=== PATIENT | female | born 1965 | race Caucasian/White ===

== ENCOUNTER 2017-09-21 09:13 | Emergency (ER) | payer BC ==
[2017-09-21 09:46] VITALS: O2SAT 99
[2017-09-21] MEDS ORDERED: TORAdol 30 mg Injection IM ONE (09:55)
[2017-09-21] MEDS ORDERED: Phenergan 25 MG INJ IM ONE (09:55)
--- NOTE | 2017-09-21 09:55 | ERPHSYRPT ---
- History of Present Illness Time Seen by Provider: 09/21/17 09:42 Source: patient Exam Limitations: no limitations Physician History: The patient is a 52-year-old female with her complaining of a worsening migraine headache for 5 days. The headache started last Sunday when she also started getting a cold and sinus pressure. Her sinus pressure is worsening and she thinks that may have something to do with her worsening headache. The headache is more or less typical migraine that she has with pain behind her left eye. She has chronic migraines. She did not take Imitrex until this morning at 5 AM. She has recently been taking Botox injections to try to prevent the migraines. She avoids light. Noise bothers her. She states she has left side vision problems that always occur with her migraines. She did not receive her influenza vaccination this year. She smokes. Her past medical history is significant for chronic migraine headaches and bipolar disorder. Timing/Duration: day(s) (5) Quality: pressure Head Pain Location: frontal (behind left eye) Severity of Pain-Max: severe Severity of Pain-Current: severe Recent Head Trauma: chronic headaches Modifying Factors: Improves With: exposure to light, noise Associated Symptoms: nasal congestion, sinus infection, sensitive to light, vision changes Previous symptoms: same symptoms as today Allergies/Adverse Reactions: No Known Drug Allergies Allergy (Unverified 09/21/17 09:30) Home Medications: Amitriptyline HCl 25 mg PO HS 09/21/17 [History] Escitalopram Oxalate 10 mg [Lexapro 10 MG] 10 mg PO DAILY 09/21/17 [History] Marlow Carbonate [Marlow Carbonate] 150 mg PO HS 09/21/17 [History] Meclizine HCl 12.5 mg PO BIDPRN PRN 09/21/17 [History] Propranolol HCl 80 mg PO DAILY 09/21/17 [History] Sumatriptan Succinate [Imitrex] 100 mg PO UD 09/21/17 [History] Tizanidine HCl [Tizanidine HCl] 8 mg PO HS 09/21/17 [History] - Review of Systems Constitutional: No Fever, No Chills Eyes: No Symptoms Ears, Nose, & Throat: Nose Congestion Respiratory: Cough Cardiac: No Chest Pain, No Edema, No Syncope Abdominal/Gastrointestinal: No Abdominal Pain, No Nausea, No Vomiting, No Diarrhea Genitourinary Symptoms: No Dysuria Musculoskeletal: No Back Pain, No Neck Pain Skin: No Rash Neurological: Headache Psychological: No Symptoms Endocrine: No Symptoms Hematologic/Lymphatic: No Symptoms Immunological/Allergic: No Symptoms All Other Systems: Reviewed and Negative - Physical Exam General Appearance: moderate distress Eye Exam: PERRL/EOMI Ears, Nose, Throat Exam: normal ENT inspection, moist mucous membranes, other ( tenderness to frontal and maxillary sinuses.) Neck Exam: normal inspection, supple, full range of motion, No meningismus Respiratory Exam: normal breath sounds, lungs clear Cardiovascular Exam: regular rate/rhythm, normal heart sounds Gastrointestinal/Abdominal Exam: soft, No tenderness, No distention Back Exam: normal inspection, normal range of motion Extremity Exam: normal inspection Mental Status Exam: alert, oriented x 3, 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 You were given Toradol 60 mg and Phenergan 50 mg by IM injection in the ER. Take Augmentin 2 times a day for 10 days for the sinusitis. Follow-up as needed. Prescriptions: Amoxicillin/Potassium Clav [Augmentin 875-125 Tablet] 875 mg PO BID #20 tablet
[2017-09-21] MEDS ORDERED: Phenergan 25 MG INJ ONE (09:58)
[2017-09-21] MEDS ORDERED: TORAdol 30 mg Injection ONE (09:58)
[2017-09-21 10:46] VITALS: BP 133/83; PULSE 66
== END 2017-09-21 10:44 | disposition home or self-care (01) ==
LOC: ED 09:13
DX: G43.909 Migraine, unspecified, not intractable, without status migrainosus (principal); J32.9 Chronic sinusitis, unspecified
CPT/HCPCS: 96372; 99284; J1885; J2550

== ENCOUNTER 2018-12-20 15:51 | Emergency (ER) | payer BC ==
[2018-12-20] MEDS ORDERED: Norco 10/325 MG Tablet PO ONE (16:19)
--- NOTE | 2018-12-20 16:26 | ERPHSYRPT ---
- History of Present Illness Time Seen by Provider: 12/20/18 16:21 Source: patient Exam Limitations: clinical condition Patient Subjective Stated Complaint: walking the dog and the dog pulled and pt fell to the ground and tried to brake the fall with her right arm and now right forearm is swollen Triage Nursing Assessment: Pt was walking the dog and the dog pulled and pt fell to the ground and tried to brake the fall with her right arm and now right forearm is swollen and slightly deformed, rates pain 7/10, pulses good, capillary refill good Physician History: PATIENT WALKING HER DOG WITH A LEASH, PULLED TO GROUND, AND ATTEMPTED TO BREAK HER FALL WITH RIGHT HAND AND ARM. PATIENT COMPLAINS OF PAIN, SWELLING OR RIGHT RIGHT AND FOREARM. DENIES ASSOCIATED HEAD, NECK OR BACK INJURY. Occurred: just prior to arrival Method of Injury: direct blow Quality: constant Severity of Pain-Max: moderate Severity of Pain-Current: moderate Extremities Pain Location: forearm: right, wrist: right Modifying Factors: Improves With: movement Associated Symptoms: none Allergies/Adverse Reactions: No Known Drug Allergies Allergy (Verified 12/20/18 16:16) Home Medications: Amitriptyline HCl 25 mg PO HS 09/21/17 [History] Propranolol HCl 120 mg PO DAILY 09/21/17 [History] Cyanocobalamin (Vitamin B-12) [Cyanocobalamin Injection] 1,000 mcg IJ UD [History] Duloxetine HCl 30 mg PO DAILY 12/20/18 [History] LORazepam [Lorazepam] 2 mg PO QAM 12/20/18 [History] Suvorexant [Belsomra] 15 mg PO DAILY 12/20/18 [History] cloNIDine [Clonidine] 0.1 mg TOP WEEKLY 12/20/18 [History] Hx Tetanus, Diphtheria Vaccination/Date Given: Yes (2014) Hx Influenza Vaccination/Date Given: No Hx Pneumococcal Vaccination/Date Given: No - Review of Systems Constitutional: No Symptoms Musculoskeletal: Injury, Joint Pain, Joint Swelling Neurological: No Symptoms Psychological: No Symptoms - Past Medical History Pertinent Past Medical History: Yes Neurological History: Migraines Respiratory History: Pneumonia Psycho-Social History: Anxiety, Bipolar, Depression - Past Surgical History Past Surgical History: Yes Musculoskeletal: Orthopedic Surgery Female Surgical History: Hysterectomy Other Surgical History: ankle, hip, trach - Social History Smoking Status: Current every day smoker How long have you smoked: 15 Exposure to second hand smoke: Yes Drug Use: none Patient Lives Alone: No - Female History Hx Now: No (hysterectomy) - Nursing Vital Signs Nursing Vital Signs: Initial Vital Signs O2 Sat by Pulse Oximetry 98 12/20/18 16:27 Pain Scale Pain Intensity 7 - Physical Exam General Appearance: mild distress Elbow/Forearm Exam: normal inspection, soft tissue tenderness (OVER RIGHT DISTAL 3RD FOREARM DORSUM AND VOLAR ASPECT) Wrist Exam: limited ROM, soft tissue tenderness, swelling (WITH TENDERNESS OVER SNUFF BOX, MODERATE TENDERNESS, DORSUM OF WRIST, NO DEFORMITY, ECCHYMOSIS, FULL RANGE OF MOTION ALL DIGITS,) Neuro/Tendon Exam: normal sensation Skin Exam: normal color SpO2 Interpretation: normal SpO2: 98 Procedures - Splinting Location of Splint: Right, Forearm Type of Splint: Orthoglass Short Arm Splint Splint Applied By: ED Physician Pre-Proc Neuro Vasc Exam: normal Post-Proc Neuro Vasc Exam: neurovascular intact - Radiology Exams Right Forearm X-ray Interpretation: Discussed w/ radiologist (nondisplaced transverse fracture distal metadiaphysis) Right Hand X-ray Interpretation: Discussed w/ radiologist (NONDISPLACED FRACTURE DISTAL RIGHT WRIST) Ordered Tests: Active Orders 24 hr Category Date Time Status FOREARM Stat Exams 12/20/18 16:20 Completed HAND (MINIMUM 3 VIEWS) Stat Exams 12/20/18 16:20 Completed Medication Summary Discontinued Medications Generic Name Dose Route Start Last Admin Trade Name Marcelloq PRN Reason Stop Dose Admin Hydrocodone Bitart/Acetaminophen 1 tab 12/20/18 16:19 12/20/18 16:28 [place] 10/325 Mg Tablet PO 12/20/18 16:20 1 tab STAT ONE Administration Hydrocodone Bitart/Acetaminophen Confirm 12/20/18 16:27 [place] 10/325 Mg Tablet Administered 12/20/18 16:28 Dose 1 tab .ROUTE .STK-MED ONE - Progress Progress: improved Progress Note: 12/20/18 16:26 ADMINISTERED NORCO 10/325 ORALLY, APPLICATION SHORT ARM ORTHOGLASS SPLINT, WITH ARM SLING 12/20/18 17:05 Counseled pt/family regarding: diagnosis, need for follow-up, rad results - Departure Time of Disposition: 17:15 Departure Disposition: Home Clinical Impression: NONDISPLACED DISTAL RIGHT RADIAL FX Condition: Stable Critical Care Time: No Additional Instructions: FOLLOWUP WITH [facility] IN 3 DAYS FOR EVALUATION AND CAST PLACEMENT. [facility], . MAINTAIN SPLINT AND ARM SLING. CONTINUE TO APPLY ICE OVER WRIST SWELLING EVERY 4 HOURS, 30 MINUTES FOR 48 HOURS. NORCO 10/325 EVERY 6 HOURS FOR PAIN, Prescriptions: Hydrocodone/APAP 10/325 mg [[place] 10/325 MG Tablet] 1 tab PO Q6H PRN PRN # 15 tablet MDD 4 PRN Reason: Pain
[2018-12-20 16:27] VITALS: O2SAT 98
[2018-12-20] MEDS ORDERED: Norco 10/325 MG Tablet ONE (16:27)
--- NOTE | 2018-12-20 16:54 | XRAY ---
Indication: Pain following fall. Comparison: None 3 views of the right wrist demonstrates nondisplaced transverse fracture involving the distal metadiaphysis of the radius with soft tissue swelling. No other bony, articular, or soft tissue abnormalities.
--- NOTE | 2018-12-20 16:54 | XRAY ---
Indication: Pain following fall. Comparison: None 2 views of the right forearm demonstrates nondisplaced transverse fracture involving the distal metadiaphysis of the radius with soft tissue swelling. No other bony, articular, or soft tissue abnormalities.
[2018-12-20 16:58] VITALS: BP 159/98; PULSE 66
== END 2018-12-20 17:29 | disposition home or self-care (01) ==
LOC: ED 15:51
DX: S52.91XA Unspecified fracture of right forearm, initial encounter for closed fracture (principal); R58 Hemorrhage, not elsewhere classified; Z79.899 Other long term (current) drug therapy; F41.9 Anxiety disorder, unspecified; F31.9 Bipolar disorder, unspecified
CPT/HCPCS: 29126; 73090; 73130; 99283; A9270-GY

== ENCOUNTER 2019-09-18 12:48 | Emergency (ER) | payer BC ==
[2019-09-18] MEDS ORDERED: TYLENOL 325 MG PO ONE (13:17)
[2019-09-18] MEDS ORDERED: Sodium Chloride 0.9% 1000 ML 1,000 ML IV STA (13:17)
[2019-09-18] MEDS ORDERED: Phenergan 25 MG INJ IV ONE (13:17)
[2019-09-18] MEDS ORDERED: MORPHINE SULFATE 10 MG/ML IV ONE (13:17)
--- NOTE | 2019-09-18 13:17 | ERPHSYRPT ---
- History of Present Illness Time Seen by Provider: 09/18/19 12:57 Historian: patient Exam Limitations: no limitations Patient Subjective Stated Complaint: Pt states "I was in the shower and I passed out this morning. i sometimes pass out due to my migraines but this morning, I hit the faucet with my ribs and they really hurt." Triage Nursing Assessment: Pt presented alert and oriented X 3, skin pwd pt ambulates with an upright steady gait, able to speak in clear full sentencees. pt in no apparent respiratory distress. Pt holding left ribs. Physician History: Patient is here with left rib pain. Patient had a syncopal episode earlier today. She hit her left ribs on the faucet. She now has pain there. Patient states she gets syncopal episodes with her migraines. She is not concerned about her syncope today. She states she has taken her DHE for her migraine at home. location: left rib pain Sharp radiating into the rest of chest started after fall this AM it occurred suddenly She denies any N/V/SOB, headache, fever, chills Timing/Duration: today Activities at Onset: activity Quality: sharpness Severity of Pain-Max: none Severity of Pain-Current: none Modifying Factors: Improves With: nothing Associated Symptoms: denies symptoms Prior Chest Pain/Cardiac Workup: no prior chest pain Aspirin Treatment Today: no aspirin today Allergies/Adverse Reactions: No Known Drug Allergies Allergy (Verified 12/20/18 16:16) Home Medications: Amitriptyline HCl 25 mg PO HS 09/21/17 [History] Propranolol HCl 120 mg PO DAILY 09/21/17 [History] Cyanocobalamin (Vitamin B-12) [Cyanocobalamin Injection] 1,000 mcg IJ UD [History] Duloxetine HCl 30 mg PO DAILY 12/20/18 [History] LORazepam [Lorazepam] 2 mg PO QAM 12/20/18 [History] Suvorexant [Belsomra] 15 mg PO DAILY 12/20/18 [History] cloNIDine [Clonidine] 0.1 mg TOP WEEKLY 12/20/18 [History] Hx Tetanus, Diphtheria Vaccination/Date Given: No Hx Influenza Vaccination/Date Given: Yes Hx Pneumococcal Vaccination/Date Given: No Immunizations Up to Date: Yes - Review of Systems Constitutional: No Fever, No Chills Eyes: No Symptoms Ears, Nose, & Throat: No Symptoms Respiratory: No Cough, No Dyspnea Cardiac: Chest Pain, No Edema, No Syncope Abdominal/Gastrointestinal: No Abdominal Pain, No Nausea, No Vomiting, No Diarrhea Genitourinary Symptoms: No Dysuria Musculoskeletal: No Back Pain, No Neck Pain Skin: No Rash Neurological: No Dizziness, No Focal Weakness, No Sensory Changes Psychological: No Symptoms Endocrine: No Symptoms All Other Systems: Reviewed and Negative - Past Medical History Pertinent Past Medical History: Yes Neurological History: Migraines, Stroke Cardiac History: Hypertension Respiratory History: No Pertinent History Endocrine Medical History: No Pertinent History Musculoskeletal History: Fractures Psycho-Social History: Anxiety, Bipolar, Depression Other Medical History: FX - RIGHT WRIST 2018, LEFT ANKLE 01/2014 REQUIRING SX TO TIGHTEN LIGAMENTS, HIP SURGERY FOR RECONSTRUCTION OF HIP "CUP" 1991 - Past Surgical History Past Surgical History: Yes Musculoskeletal: Orthopedic Surgery Female Surgical History: Hysterectomy Other Surgical History: ankle, hip, trach - Social History Smoking Status: Current every day smoker How long have you smoked: years Exposure to second hand smoke: Yes Drug Use: none Patient Lives Alone: No - Female History Hx Now: No - Nursing Vital Signs Nursing Vital Signs: Initial Vital Signs Temperature 97.8 F 09/18/19 12:56 Pulse Rate 92 H 09/18/19 12:56 Respiratory Rate 24 09/18/19 12:56 Blood Pressure 179/103 09/18/19 12:56 O2 Sat by Pulse Oximetry 100 09/18/19 12:56 Pain Scale Pain Intensity 8 - Physical Exam General Appearance: no apparent distress, alert Eye Exam: PERRL/EOMI, eyes nml inspection Ears, Nose, Throat Exam: normal ENT inspection, moist mucous membranes Neck Exam: normal inspection, non-tender, supple, full range of motion Respiratory Exam: normal breath sounds, lungs clear, No respiratory distress Cardiovascular Exam: regular rate/rhythm, normal heart sounds Gastrointestinal/Abdomen Exam: soft, No tenderness, No mass Back Exam: normal inspection, No CVA tenderness, No vertebral tenderness Extremity Exam: normal inspection, normal range of motion Neurologic Exam: alert, oriented x 3, cooperative, normal mood/affect, sensation nml, No motor deficits Skin Exam: normal color, warm, dry SpO2: 100 Comments: 09/18/19 13:44 Left sided chest tenderness to palpation. No crepitus or deformity. Moving air well. Breath sounds present throughout. 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 Care 09/18/19 13:18 Active IV Insertion STAT Care 09/18/19 13:17 Active CHEST 2 VIEWS (PA AND LAT) Stat Exams 09/18/19 13:18 Completed HEAD WITHOUT CONTRAST [CT] Stat Exams 09/18/19 13:19 Completed CBC W DIFF Stat Lab 09/18/19 13:41 Completed CMP Stat Lab 09/18/19 13:41 Completed TROPONIN Stat Lab 09/18/19 13:41 Completed EKG STAT RT 09/18/19 13:20 Active Medication Summary Discontinued Medications Generic Name Dose Route Start Last Admin Trade Name Freq PRN Reason Stop Dose Admin Acetaminophen 975 mg 09/18/19 13:17 09/18/19 13:25 Tylenol 325 Mg PO 09/18/19 13:18 975 mg STAT ONE Administration Acetaminophen Confirm 09/18/19 13:23 Tylenol 325 Mg Administered 09/18/19 13:24 Dose 975 mg .ROUTE .STK-MED ONE Sodium Chloride 1,000 mls @ 999 mls/hr 09/18/19 13:17 09/18/19 13:25 Sodium Chloride 0.9% 1000 Ml IV 09/18/19 14:17 999 mls/hr .Q1H1M STA Administration Sodium Chloride Confirm 09/18/19 13:23 Sodium Chloride 0.9% 1000 Ml Administered 09/18/19 13:24 Dose 1,000 mls @ ud .ROUTE .STK-MED ONE Morphine Sulfate 8 mg 09/18/19 13:17 09/18/19 13:25 Morphine Sulfate 10 Mg/Ml IV 09/18/19 13:18 8 mg STAT ONE Administration Morphine Sulfate Confirm 09/18/19 13:22 Morphine Sulfate 10 Mg/Ml Administered 09/18/19 13:23 Dose 10 mg .ROUTE .STK-MED ONE Promethazine HCl 25 mg 09/18/19 13:17 09/18/19 13:25 Phenergan 25 Mg Inj IV 09/18/19 13:18 25 mg STAT ONE Administration Promethazine HCl Confirm 09/18/19 13:22 Phenergan 25 Mg Inj Administered 09/18/19 13:23 Dose 25 mg .ROUTE .STK-MED ONE Lab/Rad Data: Laboratory Result Diagrams 09/18/19 13:41 09/18/19 13:41 Laboratory Results 09/18/19 09/18/19 Range/Units 13:41 13:41 WBC 7.8 (4.0-10.5) K/mm3 RBC 4.75 (4.1-5.4) M/mm3 Hgb 14.0 (12.0-16.0) gm/dl Hct 41.8 (35-47) % MCV 88.0 (78-100) fl MCH 29.5 (26-32) pg MCHC 33.5 (32-36) g/dl RDW 12.7 (11.5-14.0) % Plt Count 254 (150-450) K/mm3 MPV 9.5 (6-9.5) fl Gran % 51.8 (36.0-66.0) % Eos # (Auto) 0.21 (0-0.5) Absolute Lymphs (auto) 2.81 (1.0-4.6) Absolute Monos (auto) 0.75 (0.0-1.3) Lymphocytes % 35.8 (24.0-44.0) % Monocytes % 9.6 (0.0-12.0) % Eosinophils % 2.7 (0.00-5.0) % Basophils % 0.1 (0.0-0.4) % Absolute Granulocytes 4.06 (1.4-6.9) Basophils # 0.01 (0-0.4) Sodium 137 (137-145) mmol/L Potassium 4.3 (3.5-5.1) mmol/L Chloride 98 (98-107) mmol/L Carbon Dioxide 31 H (22-30) mmol/L Anion Gap 12.6 (5-15) MEQ/L BUN 7 (7-17) mg/dL Creatinine 0.78 (0.52-1.04) mg/dL Estimated GFR > 60.0 ML/MIN Glucose 90 (74-106) mg/dL Calcium 10.0 (8.4-10.2) mg/dL Total Bilirubin 0.50 (0.2-1.3) mg/dL AST 24 (14-36) U/L ALT 18 (0-35) U/L Alkaline Phosphatase 111 (38-126) U/L Troponin I < 0.012 (0.000-0.034) ng/mL Serum Total Protein 7.9 (6.3-8.2) g/dL Albumin 4.2 (3.5-5.0) g/dL - Progress Progress: improved Air Movement: good Progress Note: 09/18/19 13:45 DDx includes [place], STEMI, PTX, arrhythmia, head injury, brain bleed. - we obtain EKG, basic labs, fluids, pain control, CXR and head CT EKG: NSR without signs of ischemia - my read 09/18/19 14:28 XR negative for fracture or PTX. The rest of work up has returned negative. Troponin is negative. From my perspective, patient is feeling better. We will discharge patient home at this point in time. Migraine improved and patient will follow up with PCP. Return here for new or changing symptoms. - Departure Departure Disposition: Home Clinical Impression: Migraine headache Condition: Stable Critical Care Time: No Referrals: TIFFANIE BROUSSARD MD [Primary Care Provider] - Instructions: Rib Fracture (DC)
[2019-09-18] MEDS ORDERED: Phenergan 25 MG INJ ONE (13:22)
[2019-09-18] MEDS ORDERED: MORPHINE SULFATE 10 MG/ML ONE (13:22)
[2019-09-18] MEDS ORDERED: TYLENOL 325 MG ONE (13:23)
[2019-09-18] MEDS ORDERED: Sodium Chloride 0.9% 1000 ML 1,000 ML ONE (13:23)
[2019-09-18 13:42] VITALS: BP 158/90; PULSE 88
[2019-09-18 13:43] LABS: Absolute Neutrophil Ct (ANC) 4.06 (1.4-6.9); BASOPHIL % 0.1 % (0.0-0.4); Basophil (Absolute #) 0.01 (0-0.4); Eosinophil % 2.7 % (0.00-5.0); Eosinophil (Absolute #) 0.21 (0-0.5); Hematocrit 41.8 % (35-47); Lymphocyte (Absolute #) 2.81 (1.0-4.6); Lymphocytes % 35.8 % (24.0-44.0); Mean Corpuscular Hemoglobin 29.5 pg (26-32); Mean Corpuscular Hgb Concent. 33.5 g/dl (32-36); Mean Platelet Volume 9.5 fl (6-9.5); Monocyte (Absolute #) 0.75 (0.0-1.3); Monocytes % 9.6 % (0.0-12.0); Neutrophil % 51.8 % (36.0-66.0); Platelet Count 254 K/mm3 (150-450); Red Blood Count 4.75 M/mm3 (4.1-5.4); Red Cell Distribution Width 12.7 % (11.5-14.0); White Blood Count 7.8 K/mm3 (4.0-10.5)
[2019-09-18 13:49] VITALS: O2SAT 100
[2019-09-18 14:11] LABS: ALBUMIN 4.2 g/dL (3.5-5.0); ALKALINE PHOSPHATASE 111 U/L (38-126); ANION GAP 12.6 MEQ/L (5-15); BLOOD UREA NITROGEN 7 mg/dL (7-17); CHLORIDE 98 mmol/L (98-107); Carbon Dioxide 31 mmol/L (22-30); Creatinine 1 0.78 mg/dL (0.52-1.04); Glucose 90 mg/dL (74-106); Potassium 4.3 mmol/L (3.5-5.1); SGOT/AST 24 U/L (14-36); SGPT/ALT 18 U/L (0-35); SODIUM 137 mmol/L (137-145); Total Protein 7.9 g/dL (6.3-8.2)
--- NOTE | 2019-09-18 14:11 | XRAY ---
Indication: Fall. Syncopal episode. Migraines. Multiple contiguous axial images obtained through the head without contrast. Comparison: None Normal appearing brain parenchyma, ventricles, and bony calvarium. Visualized paranasal sinuses and mastoid air cells are clear. Impression: Normal CT head without contrast exam. CT DI 55.34
--- NOTE | 2019-09-18 14:13 | XRAY ---
Indication: Left rib pain following fall. Comparison: None PA/lateral chest demonstrates left base subsegmental atelectasis/scarring. Remaining heart and lungs normal. Incidental moderate size hiatal hernia. Bony thorax demonstrates T10 superior endplate fracture with approximately 25% height loss of uncertain chronicity. Impression: 1. Left base subsegmental atelectasis/scarring and hiatal hernia. 2. T10 superior endplate fracture of uncertain chronicity.
[2019-09-18 14:18] LABS: TROPONIN < 0.012 ng/mL (0.000-0.034)
== END 2019-09-18 14:35 | disposition home or self-care (01) ==
LOC: ED 12:48
DX: G43.909 Migraine, unspecified, not intractable, without status migrainosus (principal)
CPT/HCPCS: 36000; 36415; 70450; 71046; 80053; 84484; 85025; 93041; 96374; 96375; 99284; J2270; J2550; A9270-GY

== ENCOUNTER 2020-04-26 09:15 | Emergency (ER) | payer OTHER ==
--- NOTE | 2020-04-26 09:28 | ERPHSYRPT ---
- History of Present Illness Time Seen by Provider: 04/26/20 09:28 Source: patient Exam Limitations: no limitations Physician History: This is a 54-year-old white female has a history of migraine headaches and presents to the emergency department with her typical migraine headache. Patient states that nearly every morning she has migraine headaches but they usually respond to the medication she takes. This morning, she states that the pain is in the same location and same type but not responding to her medication. Patient states she did take her medication today. Patient sees Dr. Mahajan at [facility] for her neurology issues. She has not seen him in approximately a year. She has attempted several times to secure an appointment. The next available appointment is in July per her report. Patient states that she has had no trauma to her head. Timing/Duration: today Quality: aching, throbbing Head Pain Location: temporal Severity of Pain-Max: moderate Severity of Pain-Current: moderate Recent Head Trauma: no recent headache/trauma, frequent headaches Modifying Factors: Improves With: exposure to light, noise Associated Symptoms: nausea/vomiting, sensitive to light Previous symptoms: same symptoms as today Allergies/Adverse Reactions: clonidine [From Tolerx] Allergy (Mild, Verified 04/26/20 09:30) Rash Home Medications: Dihydroergotamine Mesylate 1 mg SQ WEEKLY 04/26/20 [History] Galcanezumab-Gnlm [Emgality] 120 mg SQ DAILY 04/26/20 [History] OXcarbazepine [Oxcarbazepine] 300 mg PO DAILY 04/26/20 [History] Ondansetron ODT 4 MG [Zofran Odt 4 mg] 4 mg PO STAT 04/26/20 [History] PANTOPRAZOLE 40 mg Tablet [Protonix 40MG Tablet] 40 mg PO DAILY 04/26/20 [History] Valsartan 320 mg PO DAILY 04/26/20 [History] levOCARNitine [Levocarnitine] 330 mg PO DAILY 04/26/20 [History] Hx Tetanus, Diphtheria Vaccination/Date Given: No Hx Influenza Vaccination/Date Given: Yes Hx Pneumococcal Vaccination/Date Given: No Travel Risk - International Travel Have you traveled outside of the country in past 3 weeks: No - Coronavirus Screening Are you exhibiting any of the following symptoms?: No Close contact with a COVID-19 positive Pt in past 14-21 Days: No - Review of Systems Constitutional: No Symptoms Eyes: No Symptoms Ears, Nose, & Throat: No Symptoms Respiratory: No Symptoms Cardiac: No Symptoms Abdominal/Gastrointestinal: No Symptoms Genitourinary Symptoms: No Symptoms Musculoskeletal: No Symptoms Skin: No Symptoms Neurological: Headache Psychological: No Symptoms Endocrine: No Symptoms Hematologic/Lymphatic: No Symptoms Immunological/Allergic: No Symptoms All Other Systems: Reviewed and Negative - Past Medical History Pertinent Past Medical History: Yes Neurological History: Migraines, Stroke Cardiac History: Hypertension Respiratory History: No Pertinent History Endocrine Medical History: No Pertinent History Musculoskeletal History: Fractures Psycho-Social History: Anxiety, Bipolar, Depression Other Medical History: FX - RIGHT WRIST 2018, LEFT ANKLE 01/2014 REQUIRING SX TO TIGHTEN LIGAMENTS, HIP SURGERY FOR RECONSTRUCTION OF HIP "CUP" 1991 - Past Surgical History Past Surgical History: Yes Musculoskeletal: Orthopedic Surgery Female Surgical History: Hysterectomy Other Surgical History: ankle, hip, trach - Social History Smoking Status: Current every day smoker How long have you smoked: years Exposure to second hand smoke: Yes Drug Use: none Patient Lives Alone: No - Nursing Vital Signs Nursing Vital Signs: Initial Vital Signs Temperature 97.5 F 04/26/20 09:21 Pulse Rate 88 04/26/20 09:21 Respiratory Rate 16 04/26/20 09:21 O2 Sat by Pulse Oximetry 100 04/26/20 09:21 Pain Scale Pain Intensity 9 - Physical Exam General Appearance: mild distress, alert, anxiety Eye Exam: PERRL/EOMI, eyes nml inspection Ears, Nose, Throat Exam: normal ENT inspection, moist mucous membranes Neck Exam: normal inspection, non-tender, supple, full range of motion Respiratory Exam: normal breath sounds, lungs clear, airway intact, No chest tenderness, No respiratory distress Cardiovascular Exam: regular rate/rhythm, normal heart sounds, normal peripheral pulses Gastrointestinal/Abdominal Exam: No tenderness Back Exam: normal inspection, normal range of motion, No CVA tenderness, No vertebral tenderness Extremity Exam: normal inspection, normal range of motion, pelvis stable Mental Status Exam: alert, oriented x 3, cooperative crank hand Exam: normal hearing, normal speech, PERRL, tongue midline Coordination/Gait Exam: normal finger to nose, normal gait, normal cerebellar function Motor/Sensory Exam: no motor deficit, no sensory deficit, no pronator drift Skin Exam: normal color, warm, dry Lymphatic Exam: No adenopathy SpO2 Interpretation: normal O2 Delivery: Room Air - Course Nursing assessment & vital signs reviewed: Yes Ordered Tests: Medication Summary Discontinued Medications Generic Name Dose Route Start Last Admin Trade Name Promise PRN Reason Stop Dose Admin Hydromorphone HCl 1 mg 04/26/20 09:47 Hydromorphone 1 Mg/Ml Ampule IM 04/26/20 09:48 STAT ONE Promethazine HCl 12.5 mg 04/26/20 09:47 Phenergan 25 Mg Inj IM 04/26/20 09:48 STAT ONE - Progress Progress: improved, re-examined Air Movement: good Blood Culture(s) Obtained: No Antibiotics given: No Counseled pt/family regarding: diagnosis, need for follow-up - Departure Departure Disposition: Home Clinical Impression: Migraine headache Condition: Stable Critical Care Time: No Referrals: TIFFANIE BROUSSARD MD [Primary Care Provider] - Additional Instructions: Take your medication as prescribed. Follow-up with your neurologist today to make an appointment for evaluation. Call your primary care physician today to make an appointment for further evaluation.
[2020-04-26] MEDS ORDERED: Phenergan 25 MG INJ IM ONE (09:47)
[2020-04-26] MEDS ORDERED: Hydromorphone 1 mg/ml Ampule IM ONE (09:47)
[2020-04-26] MEDS ORDERED: Phenergan 25 MG INJ ONE (10:07)
[2020-04-26] MEDS ORDERED: Hydromorphone 1 mg/ml Ampule ONE (10:08)
[2020-04-26 10:30] VITALS: BP 155/98; PULSE 66; O2SAT 98
== END 2020-04-26 10:33 | disposition home or self-care (01) ==
LOC: ED 09:15
DX: G43.909 Migraine, unspecified, not intractable, without status migrainosus (principal)
CPT/HCPCS: 96372; 99284; J1170; J2550

== ENCOUNTER 2020-10-24 11:49 | Observation (INO) | payer OTHER ==
[2020-10-24 12:47] LABS: Absolute Neutrophil Ct (ANC) 1.64 (1.4-6.9); Basophil (Absolute #) 0 (0-0.4); Eosinophil % 2.9 % (0.00-5.0); Eosinophil (Absolute #) 0.13 (0-0.5); Hematocrit 40.8 % (35-47); Hemoglobin 13.9 gm/dl (12.0-16.0); Lymphocyte (Absolute #) 2.33 (1.0-4.6); Mean Cell Volume 84.8 fl (78-100); Mean Corpuscular Hemoglobin 28.9 pg (26-32); Mean Corpuscular Hgb Concent. 34.1 g/dl (32-36); Mean Platelet Volume 10.8 fl (7.5-11.0); Monocyte (Absolute #) 0.38 (0.0-1.3); Monocytes % 8.5 % (0.0-12.0); Neutrophil % 36.6 % (36.0-66.0); Platelet Count 211 K/mm3 (150-450); Red Blood Count 4.81 M/mm3 (4.1-5.4); Red Cell Distribution Width 12.5 % (11.5-14.0); White Blood Count 4.5 K/mm3 (4.0-10.5)
[2020-10-24] MEDS ORDERED: BABY ASPIRIN 81 MG CHEW PO ONE (13:01)
[2020-10-24] MEDS ORDERED: BENADRYL 50 MG/ML IV ONE (13:01)
[2020-10-24] MEDS ORDERED: TORAdol 30 mg Injection IV ONE (13:01)
[2020-10-24] MEDS ORDERED: Reglan 10 MG/2 ML IV ONE (13:01)
[2020-10-24 13:04] LABS: ALKALINE PHOSPHATASE 114 U/L (38-126); ANION GAP 8.9 MEQ/L (5-15); BLOOD UREA NITROGEN 6 mg/dL (7-17); CHLORIDE 90 mmol/L (98-107); Calcium 8.9 mg/dL (8.4-10.2); Carbon Dioxide 29 mmol/L (22-30); Creatinine 1 0.79 mg/dL (0.52-1.04); EST GLOMERULAR FILTRATION RATE > 60.0 ML/MIN; Glucose 121 mg/dL (74-106); NT PRO BNP 207 pg/mL (0-900); Potassium 4.3 mmol/L (3.5-5.1); SGOT/AST 20 U/L (14-36); SGPT/ALT 13 U/L (0-35); SODIUM 123 mmol/L (137-145); Total Protein 7.2 g/dL (6.3-8.2)
--- NOTE | 2020-10-24 13:06 | ERPHSYRPT ---
- History of Present Illness Time Seen by Provider: 10/24/20 11:56 Historian: patient Exam Limitations: no limitations Patient Subjective Stated Complaint: chest pain, migraine, HTN Triage Nursing Assessment: pt to ED c/o CP, HTN onset less than 30 min ago and migraine x 5 days. states she had jsut given herself migraine meds and began having CP after. checked BP a home and reports 179/90, 200/99 on arrival to ED. hx HTN but has taken meds this am as per usual. rates 8/10 pain in chest that radiates to L arm. denies cardiac hx other than HTN. Physician History: 55 years old female with history of poorly controlled migraines who is taking multiple medications on a routine basis was having migraine attack for the last 5 days and have taken ergotamine shot almost an hour prior to arrival a later noticed her blood pressure was elevated in 190s and started to have some chest pressure/tightness dull aching mild to moderate with no shortness of breath. Her chest pain/pressure is improving now but not completely resolved. She still have a headache. Denies any numbness tingling or weakness. Headache is similar to previous episodes and does not think this is the worst headache of her life. Denies any difficulty movements of neck. No fever chills blurry vision/diplopia reported. Timing/Duration: hour(s) (1), sudden, improved Activities at Onset: rest Quality: aching, dullness Location: central Chest Pain Radiation: no radiation Severity of Pain-Max: moderate Severity of Pain-Current: mild Modifying Factors: Improves With: nothing Associated Symptoms: nausea, headache, No palpitations, No hurts to breathe, No weakness Nitro Today/Relief: no nitro taken today Aspirin Treatment Today: no aspirin today Allergies/Adverse Reactions: clonidine [From Catapres] Allergy (Mild, Verified 10/24/20 12:00) Rash Home Medications: Dihydroergotamine Mesylate 1 mg SQ WEEKLY 04/26/20 [History] Galcanezumab-Gnlm [Emgality] 120 mg SQ DAILY 04/26/20 [History] OXcarbazepine [Oxcarbazepine] 300 mg PO DAILY 04/26/20 [History] Ondansetron ODT 4 MG [Zofran Odt 4 mg] 4 mg PO STAT 04/26/20 [History] PANTOPRAZOLE 40 mg Tablet [Protonix 40MG Tablet] 40 mg PO DAILY 04/26/20 [ History] Valsartan 320 mg PO DAILY 04/26/20 [History] levOCARNitine [Levocarnitine] 330 mg PO DAILY 04/26/20 [History] Hx Tetanus, Diphtheria Vaccination/Date Given: Yes Hx Influenza Vaccination/Date Given: Yes Hx Pneumococcal Vaccination/Date Given: No Immunizations Up to Date: Yes Travel Risk - International Travel Have you traveled outside of the country in past 3 weeks: No - Coronavirus Screening Are you exhibiting any of the following symptoms?: No Close contact with a COVID-19 positive Pt in past 14-21 Days: No - Review of Systems Constitutional: No Symptoms Eyes: No Symptoms Ears, Nose, & Throat: No Symptoms Respiratory: No Symptoms Cardiac: Chest Pain Abdominal/Gastrointestinal: Nausea Genitourinary Symptoms: No Symptoms Musculoskeletal: No Symptoms Skin: No Symptoms Neurological: Headache Psychological: No Symptoms (Check) Endocrine: No Symptoms Hematologic/Lymphatic: No Symptoms Immunological/Allergic: No Symptoms - Past Medical History Pertinent Past Medical History: Yes Neurological History: Migraines, Stroke Cardiac History: Hypertension Respiratory History: No Pertinent History Endocrine Medical History: No Pertinent History Musculoskeletal History: Fractures Psycho-Social History: Anxiety, Depression Other Medical History: FX - RIGHT WRIST 2018, LEFT ANKLE 01/2014 REQUIRING SX TO TIGHTEN LIGAMENTS, HIP SURGERY FOR RECONSTRUCTION OF HIP "CUP" 1991 - Past Surgical History Past Surgical History: Yes Musculoskeletal: Orthopedic Surgery Female Surgical History: Hysterectomy Other Surgical History: ankle, hip, trach, L shoulder - Social History Smoking Status: Current every day smoker How long have you smoked: years Exposure to second hand smoke: No Drug Use: none Patient Lives Alone: No - Female History Hx Now: No (hysterectomy) - Nursing Vital Signs Nursing Vital Signs: Initial Vital Signs Temperature 97.2 F 10/24/20 11:50 Pulse Rate 55 L 10/24/20 11:50 Respiratory Rate 10/24/20 11:50 Blood Pressure 200/99 10/24/20 11:50 Pain Scale Pain Intensity 7 - Physical Exam General Appearance: no apparent distress Eye Exam: PERRL/EOMI, eyes nml inspection Ears, Nose, Throat Exam: normal ENT inspection, TMs normal, pharynx normal Neck Exam: normal inspection, non-tender, supple, full range of motion Respiratory Exam: normal breath sounds, lungs clear Cardiovascular Exam: regular rate/rhythm, normal heart sounds Gastrointestinal/Abdomen Exam: soft, normal bowel sounds, No tenderness Back Exam: normal inspection, normal range of motion Extremity Exam: normal inspection, normal range of motion, pelvis stable Neurologic Exam: alert, oriented x 3, cooperative, improvement coordinator II-XII nml as tested, normal mood/affect, nml cerebellar function, nml station & gait, sensation nml, No motor deficits, No sensory deficit Skin Exam: normal color SpO2 Interpretation: normal SpO2: 97 O2 Delivery: Room Air - Course EKG Interpreted by Me: RATE (53), Sinus Vinnie, NORMAL AXIS, NORMAL INTERVALS, NORMAL QRS Ordered Tests: Active Orders 24 hr Category Date Time Status Hat Renovator STAT Care 10/24/20 12:20 Active CHEST 1 VIEW (PORTABLE) Stat Exams 10/24/20 12:20 Taken BLOOD CULTURE Stat Lab 10/24/20 12:20 Received CBC W DIFF Stat Lab 10/24/20 12:45 Completed CMP Stat Lab 10/24/20 12:45 Completed Lactic Acid Stat Lab 10/24/20 12:19 Completed MAGNESIUM Stat Lab 10/24/20 12:45 Completed NT PRO BNP Stat Lab 10/24/20 12:45 Completed Sodium, Urine Stat Lab 10/24/20 Ordered TROPONIN Q3H Lab 10/24/20 12:45 Completed TROPONIN Q3H Lab 10/24/20 15:30 Ordered TROPONIN Q3H Lab 10/24/20 18:30 Ordered TROPONIN Q3H Lab 10/24/20 21:30 Ordered TROPONIN Q3H Lab 10/25/20 00:30 Ordered Transfer Order Routine Transfer 10/24/20 Ordered Medication Summary Generic Name Dose Route Start Last Admin Trade Name Freq PRN Reason Stop Dose Admin Sodium Chloride 1,000 mls @ 125 mls/hr 10/24/20 16:00 10/24/20 15:58 Sodium Chloride 0.9% 1000 Ml IV 11/23/20 15:59 125 mls/hr .Q8H GLORIA Administration Discontinued Medications Generic Name Dose Route Start Last Admin Trade Name Freq PRN Reason Stop Dose Admin Aspirin 324 mg 10/24/20 13:01 10/24/20 13:24 Baby Aspirin 81 Mg Chew PO 10/24/20 13:02 324 mg STAT ONE Administration Aspirin Confirm 10/24/20 13:22 Baby Aspirin 81 Mg Chew Administered 10/24/20 13:23 Dose 324 mg .ROUTE .STK-MED ONE Diphenhydramine HCl 25 mg 10/24/20 13:01 10/24/20 13:27 Benadryl 50 Mg/Ml IV 10/24/20 13:02 25 mg STAT ONE Administration Diphenhydramine HCl Confirm 10/24/20 13:22 Benadryl 50 Mg/Ml Administered 10/24/20 13:23 Dose 50 mg .ROUTE .STK-MED ONE Ketorolac Tromethamine 30 mg 10/24/20 13:01 10/24/20 13:25 Toradol 30 Mg Injection IV 10/24/20 13:02 30 mg STAT ONE Administration Ketorolac Tromethamine Confirm 10/24/20 13:22 Toradol 30 Mg Injection Administered 10/24/20 13:23 Dose 30 mg .ROUTE .STK-MED ONE Metoclopramide HCl 10 mg 10/24/20 13:01 10/24/20 13:29 Reglan 10 Mg/2 Ml IV 10/24/20 13:02 10 mg STAT ONE Administration Metoclopramide HCl Confirm 10/24/20 13:22 Reglan 10 Mg/2 Ml Administered 10/24/20 13:23 Dose 10 mg .ROUTE .STK-MED ONE Lab/Rad Data: Laboratory Result Diagrams 10/24/20 12:45 10/24/20 12:45 Laboratory Results 10/24/20 10/24/20 10/24/20 Range/Units 12:45 12:45 12:45 WBC 4.5 (4.0-10.5) K/mm3 RBC 4.81 (4.1-5.4) M/mm3 Hgb 13.9 (12.0-16.0) gm/dl Hct 40.8 (35-47) % MCV 84.8 (78-100) fl MCH 28.9 (26-32) pg MCHC 34.1 (32-36) g/dl RDW 12.5 (11.5-14.0) % Plt Count 211 (150-450) K/mm3 MPV 10.8 (7.5-11.0) fl Gran % 36.6 (36.0-66.0) % Eos # (Auto) 0.13 (0-0.5) Absolute Lymphs (auto) 2.33 (1.0-4.6) Absolute Monos (auto) 0.38 (0.0-1.3) Lymphocytes % 52.0 H (24.0-44.0) % Monocytes % 8.5 (0.0-12.0) % Eosinophils % 2.9 (0.00-5.0) % Basophils % 0.0 (0.0-0.4) % Absolute Granulocytes 1.64 (1.4-6.9) Basophils # 0 (0-0.4) Sodium 123 L (137-145) mmol/L Potassium 4.3 (3.5-5.1) mmol/L Chloride 90 L (98-107) mmol/L Carbon Dioxide 29 (22-30) mmol/L Anion Gap 8.9 (5-15) MEQ/L BUN 6 L (7-17) mg/dL Creatinine 0.79 (0.52-1.04) mg/dL Estimated GFR > 60.0 ML/MIN Glucose 121 H (74-106) mg/dL Lactic Acid (0.4-2.0) Calcium 8.9 (8.4-10.2) mg/dL Magnesium 2.0 (1.6-2.3) mg/dL Total Bilirubin 0.50 (0.2-1.3) mg/dL AST 20 (14-36) U/L ALT 13 (0-35) U/L Alkaline Phosphatase 114 (38-126) U/L Troponin I < 0.012 (0.000-0.034) ng/mL NT-Pro-B Natriuret Pep 207 (0-900) pg/mL Serum Total Protein 7.2 (6.3-8.2) g/dL Albumin 4.0 (3.5-5.0) g/dL 10/24/20 Range/Units 12:19 WBC (4.0-10.5) K/mm3 RBC (4.1-5.4) M/mm3 Hgb (12.0-16.0) gm/dl Hct (35-47) % MCV (78-100) fl MCH (26-32) pg MCHC (32-36) g/dl RDW (11.5-14.0) % Plt Count (150-450) K/mm3 MPV (7.5-11.0) fl Gran % (36.0-66.0) % Eos # (Auto) (0-0.5) Absolute Lymphs (auto) (1.0-4.6) Absolute Monos (auto) (0.0-1.3) Lymphocytes % (24.0-44.0) % Monocytes % (0.0-12.0) % Eosinophils % (0.00-5.0) % Basophils % (0.0-0.4) % Absolute Granulocytes (1.4-6.9) Basophils # (0-0.4) Sodium (137-145) mmol/L Potassium (3.5-5.1) mmol/L Chloride (98-107) mmol/L Carbon Dioxide (22-30) mmol/L Anion Gap (5-15) MEQ/L BUN (7-17) mg/dL Creatinine (0.52-1.04) mg/dL Estimated GFR ML/MIN Glucose (74-106) mg/dL Lactic Acid 1.7 (0.4-2.0) Calcium (8.4-10.2) mg/dL Magnesium (1.6-2.3) mg/dL Total Bilirubin (0.2-1.3) mg/dL AST (14-36) U/L ALT (0-35) U/L Alkaline Phosphatase (38-126) U/L Troponin I (0.000-0.034) ng/mL NT-Pro-B Natriuret Pep (0-900) pg/mL Serum Total Protein (6.3-8.2) g/dL Albumin (3.5-5.0) g/dL - Progress Progress: improved, re-examined Air Movement: good Progress Note: 10/24/20 15:58 55 years old is evaluated for headache with resultant elevated blood pressure after taking ergotamine shot and also some chest discomfort. Her chest discomfort is improving on presentation. EKG did not show any acute ST elevations. Has negative troponins. Patient blood pressure was elevated and has nonfocal neuro exam throughout stay in the ER. Migraine headache is typical and does not think this is the worst headache of her life, do not think needs imaging or other work-up for that. She is given migraine cocktail, on reevaluation her headache is almost completely resolved. Baseline work-up showed normal white count but a sodium of 123 and patient does take ox carbamazepine which probably is the reason for her hyponatremia. She is started on normal saline with slow correction. Discussed with Dr. Norton who agree with starting normal saline at 125 mL/h and patient would be admitted to the floor. Blood Culture(s) Obtained: No Antibiotics given: No Counseled pt/family regarding: lab results, diagnosis, need for follow-up, rad results - Departure Departure Disposition: Observation Clinical Impression: Hyponatremia Chest pain Qualifiers: Chest pain type: unspecified Qualified Code(s): R07.9 - Chest pain, unspecified Migraine headache Qualifiers: Migraine type: unspecified Status migrainosus presence: without status migrainosus Intractability: not intractable Qualified Code(s): G43.909 - Migraine, unspecified, not intractable, without status migrainosus Condition: Stable Critical Care Time: No Referrals: TIFFANIE BROUSSARD MD [Primary Care Provider] -
[2020-10-24] MEDS ORDERED: BABY ASPIRIN 81 MG CHEW ONE (13:22)
[2020-10-24] MEDS ORDERED: BENADRYL 50 MG/ML ONE (13:22)
[2020-10-24] MEDS ORDERED: Reglan 10 MG/2 ML ONE (13:22)
[2020-10-24] MEDS ORDERED: TORAdol 30 mg Injection ONE (13:22)
[2020-10-24] MEDS ORDERED: Sodium Chloride 0.9% 1000 ML 1,000 ML ONE (15:56)
[2020-10-24] MEDS ORDERED: Sodium Chloride 0.9% 1000 ML 1,000 ML IV SCH (16:00)
[2020-10-24] MEDS ORDERED: TYLENOL 325 MG PO PRN (16:42)
[2020-10-24] MEDS ORDERED: Zofran 4 MG/2 ML VIAL IV PRN (16:42)
--- NOTE | 2020-10-24 18:39 | XRAY ---
Indication: Chest pain. Comparison: September 18, 2019. Portable chest demonstrate normal heart and lungs. Bony thorax intact with stable left humeral neck bone cyst and grossly stable T10 remote fracture. No new/acute findings.
[2020-10-24] MEDS ORDERED: Cymbalta 30 MG Capsule PO SCH (22:00)
[2020-10-24] MEDS: Pepcid 20 MG VIAL IV SCH (22:41)
[2020-10-24] MEDS: Trileptal 300 MG Tablet PO SCH (22:56)
[2020-10-25] MEDS: Sodium Chloride 0.9% 1000 ML 1,000 ML IV SCH ×2 (00:47→09:50)
[2020-10-25 02:48] LABS: Absolute Neutrophil Ct (ANC) 2.29 (1.4-6.9); Basophil (Absolute #) 0 (0-0.4); Eosinophil % 1.6 % (0.00-5.0); Eosinophil (Absolute #) 0.07 (0-0.5); Hemoglobin 14.4 gm/dl (12.0-16.0); Lymphocyte (Absolute #) 1.62 (1.0-4.6); Lymphocytes % 36.9 % (24.0-44.0); Mean Corpuscular Hemoglobin 28.5 pg (26-32); Mean Corpuscular Hgb Concent. 33.5 g/dl (32-36); Mean Platelet Volume 10.8 fl (7.5-11.0); Monocyte (Absolute #) 0.41 (0.0-1.3); Monocytes % 9.3 % (0.0-12.0); Neutrophil % 52.2 % (36.0-66.0); Platelet Count 181 K/mm3 (150-450); Red Blood Count 5.06 M/mm3 (4.1-5.4); Red Cell Distribution Width 12.5 % (11.5-14.0); White Blood Count 4.4 K/mm3 (4.0-10.5)
[2020-10-25 03:09] LABS: ALBUMIN 3.6 g/dL (3.5-5.0); ALKALINE PHOSPHATASE 113 U/L (38-126); ANION GAP 9.8 MEQ/L (5-15); BLOOD UREA NITROGEN 8 mg/dL (7-17); CHLORIDE 96 mmol/L (98-107); Calcium 8.4 mg/dL (8.4-10.2); Carbon Dioxide 23 mmol/L (22-30); Creatinine 1 0.74 mg/dL (0.52-1.04); EST GLOMERULAR FILTRATION RATE > 60.0 ML/MIN; Glucose 99 mg/dL (74-106); SGOT/AST 19 U/L (14-36); SGPT/ALT 12 U/L (0-35); SODIUM 125 mmol/L (137-145); Total Protein 6.8 g/dL (6.3-8.2)
[2020-10-25 03:53] VITALS: O2SAT 96
[2020-10-25] MEDS ORDERED: TYLENOL 325 MG ONE (05:52)
[2020-10-25] MEDS ORDERED: Zofran 4 MG/2 ML VIAL ONE (05:52)
[2020-10-25 08:10] VITALS: BP 171/89; PULSE 70
[2020-10-25 09:13] LABS: ANION GAP 9.6 MEQ/L (5-15); BLOOD UREA NITROGEN 6 mg/dL (7-17); CHLORIDE 98 mmol/L (98-107); Calcium 8.5 mg/dL (8.4-10.2); Carbon Dioxide 24 mmol/L (22-30); EST GLOMERULAR FILTRATION RATE > 60.0 ML/MIN; Glucose 124 mg/dL (74-106); Potassium 4.3 mmol/L (3.5-5.1); SODIUM 128 mmol/L (137-145)
[2020-10-25] MEDS: Pepcid 20 MG VIAL IV SCH (09:42)
--- NOTE | 2020-10-25 09:42 | XRAY ---
Indication: Chronic migraines. Multiple contiguous axial images obtained through the head without contrast. Comparison: September 18, 2019. Normal appearing brain parenchyma, ventricles, and bony calvarium. Visualized paranasal sinuses and mastoid air cells are clear. Impression: Continued normal CT head without contrast exam.
[2020-10-25] MEDS: Trileptal 300 MG Tablet PO SCH (09:44)
[2020-10-25] MEDS ORDERED: ECOTRIN 81 MG PO SCH (11:00)
[2020-10-25] MEDS ORDERED: Protonix 40MG Tablet PO SCH (11:00)
[2020-10-25] MEDS ORDERED: DIOVAN 80 MG PO SCH (11:00)
[2020-10-25] MEDS ORDERED: MEDICATION INTERVENTION PO SCH (11:15)
[2020-10-25] MEDS ORDERED: Cymbalta 30 MG Capsule PO SCH (22:00)
--- NOTE | 2020-10-26 08:10 | HP ---
CHIEF COMPLAINT: Migraine headache, chest pain and hypertension. HISTORY OF PRESENT ILLNESS: The patient is a 55 year old white female who reports at home she had been having problems with migraine headaches which she has had for the past several days and has pretty regularly. She took some ergotamine shot for it and that is when she noticed that her blood pressure was going up and she was having some chest pain which brought her to the emergency room. PAST MEDICAL/SURGICAL HISTORY: Significant for hypertension and migraine headaches. 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 The patient otherwise sees a mask design engineer for hypertension due to the inability of her primary care physician to be able to control it. She previously had a hysterectomy. HOME MEDICATIONS: B12 shots 1,000 mcg weekly. She takes dihydroergotamine mesylate 1 mg PRN for migraine headaches, duloxetine 30 mg at night, oxcarbazepine 450 mg b.i.d. for seizure prevention, pantoprazole 40 mg a day for gastroesophageal reflux disease, propranolol extended release 120 mg for migraine prevention, Valsartan 320 mg a day for her hypertension ALLERGIES: CLONIDINE (RASH). CODEINE. SOCIAL HISTORY: The patient does still smoke and lives alone. PHYSICAL EXAMINATION: The patient's vital signs on admission showed her temperature 97.2F, pulse 55, respiratory rate 21 and blood pressure 200/99. HEENT: Normocephalic, atraumatic. She likes wearing her dark sunglasses. Extraocular movements intact. Oropharynx is pink and moist. NECK: Supple without lymphadenopathy, thyromegaly or JVD. CHEST: Clear to auscultation. HEART: Regular rate and rhythm. ABDOMEN: Soft. No palpable masses. EXTREMITIES: Without cyanosis, clubbing or edema. NEUROLOGIC: The patient appears to be alert and oriented x3 with no focal deficits. LAB DATA AND TESTS: Laboratory studies have shown the patient's lactic acid to be 1.7 on admission. Her CBC was entirely normal. Her metabolic panel showed glucose 121, BUN 6, creatinine 0.79. Her sodium was low at 123. Potassium is normal. Liver enzymes were normal. ProBNP was normal. She has had multiple troponins all being less than 0.012. She did have a follow up on her labs this morning with a sodium level up to 125. She received normal saline at 125 cc/hour. The patient did not have a CT scan of the head on admission. HOSPITAL COURSE: Overnight the patient is feeling much better but her sodium has only come up slightly. We discussed with her water restriction. We will check CT scan of the brain to see that there has been no further damage from the headaches that she has been having particularly evidence of bleed. Afterwards if the patient is doing all right, we will discharge her home with instructions to follow up with her primary care provider within the next week and to maintain a relative low intake of fluids to help improve her sodium levels.
[2020-10-26] MEDS ORDERED: VALSARTAN 320 MG PO SCH (10:00)
[2020-10-26] MEDS ORDERED: PROPRANOLOL HCL 120 MG PO SCH (10:00)
[2020-10-27] MEDS ORDERED: Cyanocobalamin B-12 1000 MCG/ML SQ SCH (10:00)
== END 2020-10-25 11:45 | disposition home or self-care (01) ==
LOC: ED 11:49 → MED SURG 16:28
PROVIDERS: ADMIT Family Medicine; ATTEND Family Medicine
DX: R07.9 Chest pain, unspecified (principal); E87.1 Hypo-osmolality and hyponatremia; G43.909 Migraine, unspecified, not intractable, without status migrainosus; I10 Essential (primary) hypertension; R11.0 Nausea; Z86.73 Personal history of transient ischemic attack (TIA), and cerebral infarction without residual deficits; Z79.899 Other long term (current) drug therapy
CPT/HCPCS: 36415; 70450; 71045; 80048; 80053; 83605; 83735; 83880; 83935; 84300; 84484; 85025; 87040; 93041; 93268; 96374; 96375; 99284; G0378; J1200; J1885; J2405; A9270-GY